=== PATIENT | male | born 1975 | race Two or more races ===

== ENCOUNTER 2021-10-26 17:15 | Inpatient (IN) | payer OTHER ==
[2021-10-26 19:22] VITALS: BMI 44.6
[2021-10-26] MEDS ORDERED: MAGNESIUM HYDROX 2400MG/30ML ORAL SUSPENSION 30 ML CUP PO PRN (20:24)
[2021-10-26] MEDS ORDERED: NALOXONE HCL 0.4 MG/ML VIAL IM PRN (20:24)
[2021-10-26] MEDS ORDERED: IBUPROFEN 400 MG TABLET (FP) PO PRN (20:24)
[2021-10-26] MEDS ORDERED: BENZOCAINE/MENTHOL (CHLORASEPTIC ) LOZENGE MM PRN (20:24)
[2021-10-26] MEDS ORDERED: guaiFENesin 200 MG/10 ML 10 ML UNIT-DOSE CUPS PO PRN (20:24)
[2021-10-26] MEDS ORDERED: LOPERAMIDE HCL 2 MG CAPSULE PO PRN (20:24)
[2021-10-26] MEDS ORDERED: MAG HYDROX/AL HYDROX/SIMETH 30 ML UNIT-DOSE CUP PO PRN (20:24)
[2021-10-26] MEDS ORDERED: NALOXONE HCL (KLOXXADO) 8 MG SPRAY NS PRN (20:24)
[2021-10-26] MEDS ORDERED: P-EPHED 60MG/TRIPROLIDI 2.5MG TABLET PO PRN (20:24)
[2021-10-26] MEDS ORDERED: BISMUTH SUBSALICYLATE 524 MG/30 ML PO PRN (20:24)
[2021-10-26] MEDS ORDERED: DICYCLOMINE HCL 10 MG CAPSULE PO PRN (20:24)
[2021-10-26] MEDS ORDERED: ACETAMINOPHEN 325 MG TABLET (FP) PO PRN (20:24)
[2021-10-26] MEDS ORDERED: MAGNESIUM CITRATE 300 ML BOTTLE PO PRN (20:24)
[2021-10-26] MEDS ORDERED: PROCHLORPERAZINE MALEATE 5 MG TABLET PO PRN (20:24)
[2021-10-26] MEDS ORDERED: NICOTINE POLACRILEX 2 MG GUM BUC PRN (20:24)
[2021-10-26] MEDS ORDERED: IBUPROFEN 600 MG TABLET (FP) PO PRN (20:24)
[2021-10-27] MEDS: METHOCARBAMOL 500 MG TABLET PO PRN (00:21)
[2021-10-27] MEDS: CEPHALEXIN MONOHYDRATE 500 MG CAPSULE (UD) PO SCH ×4 (00:22→18:10)
[2021-10-27] MEDS: THIAMINE HCL 100 MG TABLET (FP) PO SCH ×2 (00:22→22:49)
[2021-10-27] MEDS: MELATONIN 5 MG TABLETS PO SCH ×2 (00:22→22:48)
[2021-10-27] MEDS ORDERED: ALBUTEROL SO4 HFA INHALER IH PRN (06:32)
[2021-10-27] MEDS: ENALAPRIL MALEATE 10 MG TABLET PO SCH ×2 (06:38→10:07)
[2021-10-27] MEDS: NICOTINE 21 MG/24 HOURS TOPICAL PATCH TD SCH (10:06)
[2021-10-27] MEDS: diazePAM 5 MG TABLET PO SCH ×3 (10:07→22:48)
[2021-10-27] MEDS: PRENATAL VITAMINS W/ FOLIC ACID TABLET (FP) PO SCH (10:07)
[2021-10-27] MEDS ORDERED: methaDONE HCL 10 MG TABLET PO SCH (10:30)
[2021-10-27 10:50] LABS: HEMATOCRIT 37.4 % (35.4-49); MCH 28.5 pg (25.7-33.7); MEAN CELL VOLUME 89.2 fl (80-96); MEAN PLT VOLUME 9.1 fl (7.5-11.1); PLATELET COUNT 154 10^3/uL (134-434); RBC 4.19 M/mm3 (4.00-5.60); RDW 14.9 % (11.9-15.9); WHITE BLOOD COUNT 5.7 K/mm3 (4.0-10.0)
[2021-10-27] MEDS ORDERED: methaDONE HCL 10 MG TABLET ONE (11:05)
[2021-10-27] MEDS ORDERED: methaDONE HCL 40 MG DISPERSABLE TABLET ONE (11:06)
[2021-10-27 11:39] LABS: ALBUMIN 2.9 g/dl (3.4-5.0); CALCIUM 8.5 mg/dL (8.5-10.1)
[2021-10-27 11:40] LABS: BLOOD UREA NITROGEN 19.1 mg/dL (7-18)
[2021-10-27 11:43] LABS: CREATININE 0.9 mg/dL (0.55-1.3)
[2021-10-27 11:44] LABS: BILIRUBIN,TOTAL 0.4 mg/dL (0.2-1); TOT PROT 7.4 g/dl (6.4-8.2)
[2021-10-27] MEDS: traZODone HCL 50 MG TABLET (FP) PO SCH (22:48)
[2021-10-27] MEDS: ACETAMINOPHEN 325 MG TABLET (FP) PO PRN (22:49)
[2021-10-27] MEDS ORDERED: cloNIDine HCL 0.1 MG TABLET PO ONE (23:02)
[2021-10-28] MEDS: CEPHALEXIN MONOHYDRATE 500 MG CAPSULE (UD) PO SCH ×4 (01:24→18:25)
[2021-10-28] MEDS: diazePAM 5 MG TABLET PO SCH ×4 (06:13→22:36)
[2021-10-28] MEDS: NICOTINE 21 MG/24 HOURS TOPICAL PATCH TD SCH (10:28)
[2021-10-28] MEDS: PRENATAL VITAMINS W/ FOLIC ACID TABLET (FP) PO SCH (10:29)
[2021-10-28] MEDS: ENALAPRIL MALEATE 10 MG TABLET PO SCH (10:29)
[2021-10-28] MEDS ORDERED: cloNIDine HCL 0.1 MG TABLET PO ONE (13:38)
[2021-10-28] MEDS: traZODone HCL 50 MG TABLET (FP) PO SCH (22:35)
[2021-10-28] MEDS: MELATONIN 5 MG TABLETS PO SCH (22:35)
[2021-10-28] MEDS: THIAMINE HCL 100 MG TABLET (FP) PO SCH (22:35)
[2021-10-29] MEDS: CEPHALEXIN MONOHYDRATE 500 MG CAPSULE (UD) PO SCH ×4 (01:52→18:31)
[2021-10-29] MEDS: diazePAM 5 MG TABLET PO SCH ×3 (06:00→22:47)
[2021-10-29] MEDS: NICOTINE 21 MG/24 HOURS TOPICAL PATCH TD SCH (10:25)
[2021-10-29] MEDS: ENALAPRIL MALEATE 10 MG TABLET PO SCH (10:25)
[2021-10-29] MEDS: PRENATAL VITAMINS W/ FOLIC ACID TABLET (FP) PO SCH (10:25)
[2021-10-29] MEDS: diazePAM 5 MG TABLET PO PRN ×2 (10:25→20:49)
[2021-10-29] MEDS: ACETAMINOPHEN 325 MG TABLET (FP) PO PRN (20:47)
[2021-10-29] MEDS: THIAMINE HCL 100 MG TABLET (FP) PO SCH (22:47)
[2021-10-29] MEDS: traZODone HCL 50 MG TABLET (FP) PO SCH (22:47)
[2021-10-29] MEDS: MELATONIN 5 MG TABLETS PO SCH (22:47)
[2021-10-29 23:55] LABS: HIV INTERPRETATION PRESUMPTIVE POSITIVE (NEGATIVE)
[2021-10-30] MEDS: CEPHALEXIN MONOHYDRATE 500 MG CAPSULE (UD) PO SCH ×5 (00:15→23:42)
[2021-10-30] MEDS: diazePAM 5 MG TABLET PO SCH ×2 (05:40→18:29)
[2021-10-30] MEDS: PRENATAL VITAMINS W/ FOLIC ACID TABLET (FP) PO SCH (10:52)
[2021-10-30] MEDS: METHOCARBAMOL 500 MG TABLET PO PRN (10:52)
[2021-10-30] MEDS: ENALAPRIL MALEATE 10 MG TABLET PO SCH (10:52)
[2021-10-30] MEDS: NICOTINE 21 MG/24 HOURS TOPICAL PATCH TD SCH (10:52)
[2021-10-30] MEDS ORDERED: diphenhydrAMINE HCL 50 MG CAPSULE PO PRN (14:17)
[2021-10-30] MEDS ORDERED: diazePAM 5 MG TABLET PO ONE (14:23)
[2021-10-30] MEDS ORDERED: traZODone HCL 50 MG TABLET (FP) PO SCH (22:00)
[2021-10-30] MEDS: QUEtiapine FUMARATE 100 MG TABLET (FP) PO SCH (22:19)
[2021-10-30] MEDS: THIAMINE HCL 100 MG TABLET (FP) PO SCH (22:19)
[2021-10-31] MEDS ORDERED: diazePAM 5 MG TABLET PO ONE (06:00)
[2021-10-31] MEDS: CEPHALEXIN MONOHYDRATE 500 MG CAPSULE (UD) PO SCH ×4 (06:18→23:06)
[2021-10-31] MEDS: NICOTINE 21 MG/24 HOURS TOPICAL PATCH TD SCH (10:39)
[2021-10-31] MEDS: PRENATAL VITAMINS W/ FOLIC ACID TABLET (FP) PO SCH (10:39)
[2021-10-31] MEDS: ENALAPRIL MALEATE 10 MG TABLET PO SCH (10:39)
[2021-10-31] MEDS: SERTRALINE HCL 50 MG TABLET (FP) PO SCH (10:39)
[2021-10-31] MEDS: THIAMINE HCL 100 MG TABLET (FP) PO SCH (23:04)
[2021-10-31] MEDS: QUEtiapine FUMARATE 100 MG TABLET (FP) PO SCH (23:04)
[2021-11-01] MEDS: CEPHALEXIN MONOHYDRATE 500 MG CAPSULE (UD) PO SCH (06:10)
[2021-11-01 06:38] VITALS: RESP 18
[2021-11-01 09:25] VITALS: BP 152/84; PULSE 68; TEMP 97.1
[2021-11-01] MEDS: PRENATAL VITAMINS W/ FOLIC ACID TABLET (FP) PO SCH (10:17)
[2021-11-01] MEDS: ENALAPRIL MALEATE 10 MG TABLET PO SCH (10:17)
[2021-11-01] MEDS: SERTRALINE HCL 50 MG TABLET (FP) PO SCH (10:18)
[2021-11-01] MEDS: NICOTINE 21 MG/24 HOURS TOPICAL PATCH TD SCH (10:18)
== END 2021-11-01 12:02 | disposition home or self-care (01) | DRG 773 ==
LOC: YASAS 17:15 → Y3N 23:25
PROVIDERS: ADMIT Allergy & Immunology; ATTEND Surgery
PROC: HZ2ZZZZ Detoxification Services for Substance Abuse Treatment (ICD-10-PCS; principal; 2021-10-26)
DX: F10.230 Alcohol dependence with withdrawal, uncomplicated (principal); F11.20 Opioid dependence, uncomplicated; F13.230 Sedative, hypnotic or anxiolytic dependence with withdrawal, uncomplicated; F14.20 Cocaine dependence, uncomplicated; F12.10 Cannabis abuse, uncomplicated; F17.210 Nicotine dependence, cigarettes, uncomplicated; F19.24 Other psychoactive substance dependence with psychoactive substance-induced mood disorder; I10 Essential (primary) hypertension; J45.20 Mild intermittent asthma, uncomplicated; R00.1 Bradycardia, unspecified; L03.114 Cellulitis of left upper limb; E66.01 Morbid (severe) obesity due to excess calories; Z68.41 Body mass index [BMI] 40.0-44.9, adult; Z62.810 Personal history of physical and sexual abuse in childhood; Z86.59 Personal history of other mental and behavioral disorders; Z91.51 Personal history of suicidal behavior; Z56.0 Unemployment, unspecified
CPT/HCPCS: 36415; 80053; 85027; 86780; 87389; 93005; 93010; C9803-CS; J0735; U0003; U0005